=== PATIENT | male | born 1985 | race Caucasian/White ===

== ENCOUNTER 2023-04-15 14:03 | Outpatient (CLI) | payer BC, SELFPAY ==
--- OUTSIDE RECORDS SUMMARY | 2023-04-15 14:05 | XMS_ITS | Continuity of Care Document ---
Author Name Unknown Organization [facility] Address [address] [place] [address] Care Team Providers Care Bellhop Name Role Phone Rocío Sexton Primary Care Physician [facility]04/22 - 08/04/22 [facility] [address] [place] [address] Encounter Diagnosis Lumbar back pain with radiculopathy affecting left lower extremity(Discharge Diagnosis) - 08/04/22 Discharge Disposition: Home or Self Care Attending Physician: Lincoln Nickerson PA-C Admitting Physician: Lincoln Nickerson PA-C Referring Physician: Lincoln Nickerson PA-C Allergies, Adverse Reactions, Alerts No Known Medication Allergies Substance Reaction Severity Status Seasonal Moderate Active Assessment and Plan Future Appointments Immunizations Given and Recorded Vaccine Date Status Refusal Reason influenza virus vaccine, live 1 04/15/21 Recorded influenza virus vaccine, live 12/21/19 Recorded influenza virus vaccine, live 2 03/04/18 Recorded tetanus-diphth toxoids (Td) adult/adol 3 04/15/21 Recorded tetanus-diphth toxoids (Td) adult/adol 05/06/99 Re corded SARS-CoV-2 (COVID-19) mRNA-1273 vaccine 08/07/20 R ecorded SARS-CoV-2 (COVID-19) mRNA-1273 vaccine 07/10/20 R ecorded tetanus/diphth/pertuss (Tdap) adult/adol 11/15/09 Recorded hepatitis B pediatric vaccine 08/20/98 Recorded hepatitis B pediatric vaccine 03/20/98 Recorded hepatitis B pediatric vaccine 02/06/98 Recorded measles/mumps/rubella virus vaccine 06/26/98 Recor ded measles/mumps/rubella virus vaccine 12/27/87 Recor ded diphtheria/pertussis, acellular/tetanus 08/26/91 R ecorded diphtheria/pertussis, acellular/tetanus 03/28/88 R ecorded diphtheria/pertussis, acellular/tetanus 02/26/87 R ecorded diphtheria/pertussis, acellular/tetanus 01/08/87 R ecorded diphtheria/pertussis, acellular/tetanus 86 R ecorded poliovirus vaccine, live, trivalent 08/26/91 Recor ded poliovirus vaccine, live, trivalent 03/28/88 Recor ded poliovirus vaccine, live, trivalent 02/26/87 Recor ded poliovirus vaccine, live, trivalent 01/08/87 Recor ded poliovirus vaccine, live, trivalent 86 Recor ded haemophilus b conjugate (HbOC) vaccine 03/28/88 Re corded 1Result Comment: verified by DB RN and patient tolerated well. Given byy MG CHRONIC SPECIALIST 2Result Comment: tolerated well. 3Result Comment: Validated by RN YEN. Patient tolerated well. Pressure bandage applied. Medications Medrol 4 mg oral tablet 1 packets, Oral, Daily, Anti-inflammatory steroid for back pain. Take as directed on package labeling, # 21 tab, 0 Refill(s), Pharmacy: [facility] #[id number] Start Date: 08/04/22 Stop Date: 08/10/22 Status: Ordered Melatonin 3 mg oral tablet 0 Refill(s) Start Date: 04/28/22 Status: Ordered meloxicam 15 mg oral tablet 15 mg = 1 tab, Oral, Daily, PRN pain, Start after you finish Medrol Dose Pack., # 30 tab, 0 Refill(s), Pharmacy: [facility] #[id number] Start Date: 08/04/22 Stop Date: 09/03/22 Status: Ordered multivitamin adult, oral tablet 0 Refill(s) Start Date: 04/28/22 Status: Ordered Problem List Condition Confirmation Course Effective Dates Status H ealth Status Informant Acne vulgaris Confirmed Active Adult health examination Confirmed Active Cardiac arrhythmia Confirmed Active Chest pain Confirmed Active Dizziness and giddiness Confirmed Active Generalized abdominal pain Confirmed Active Hyperlipidemia Confirmed Active Impacted cerumen in left ear Confirmed Active Lumbar back pain with radiculopathy affecting left lower extremity Confirmed Active 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 Sex Male Patient Care team information Care Team Personnel Name: Rocío Sexton MD Position: Physician Member Role: Primary Care Physician Address: Address: [address] [place] [id number] [place] Care Team Related Persons Name: FRANCIS OSPINA Address: [place] [phone]
--- OUTSIDE RECORDS SUMMARY | 2023-04-15 14:05 | XMS_ITS | Continuity of Care Document ---
Author Name Unknown Organization [facility] Address [address] [place] [address] Care Team Providers Care Legal Instruments Examiner Name Role Phone Lavelle Jimenez Primary Care Physician Encounter [facility] Date(s): 07/09/22 - 07/09/[address] [address] Discharge Disposition: Home or Self Care Attending Physician: Deepak Sahu NP Admitting Physician: Deepak Sahu NP Referring Physician: eDepak Sahu COMMERCIAL FIELD INSPECTOR Allergies, Adverse Reactions, Alerts No Known Medication Allergies Substance Reaction Severity Status Seasonal Moderate Active Immunizations Given and Recorded Vaccine Date Status [...] and patient tolerated well. Given byy MG FIVE ROLL REFINER BATCH MIXER 2Result Comment: tolerated well. 3Result Comment: Validated by RN YEN. Patient tolerated well. Pressure bandage applied. 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 Panic disorder Confirmed Active Periumbilical pain Confirmed Active Screening for cardiovascular system disease Confirmed Active Thyroid function tests abnormal Confirmed Active Procedures Procedure Date Related Diagnosis Body Site Status Hernia repair 1992 Completed 1inguinal Results Laboratory List Name Date Comprehensive Metabolic Panel (CMP) 07/09 Lipid Panel 07/09/22 Most recent to oldest [Reference Range]: 1 BUN [7-18 mg/dL] 11 mg/dL (07/09/22 8:36 AM) Cholesterol Total [50-200 mg/dL] 177 mg/ dL (07/09/22 8:36 AM) LDL [0-130 mg/dL] 119 mg/dL (07/09/22 8:36 AM) Glucose Level [74-106 mg/dL] 96 mg/dL (07/09/22 8:36 AM) Potassium Level [3.5-5.1 mmol/L] 4.2 mmo l/L (07/09/22 8:36 AM) HDL [40-60 mg/dL] 33 mg/dL *LOW* (07/09/22 8:36 AM) AST [15-37 unit/L] 20 unit/L (07/09/22 8:36 AM) ALT [16-63 unit/L] 32 unit/L (07/09/22 8:36 AM) Sodium Level [136-145 mmol/L] 138 mmol/L (07/09/22 8:36 AM) Triglycerides [0-150 mg/dL] 127 mg/dL (07/09/22 8:36 AM) Calcium Level [8.5-10.1 mg/dL] 8.6 mg/dL (07/09/22 8:36 AM) Albumin Level [3.4-5.0 g/dL] 4.1 g/dL (07/09/22 8:36 AM) Protein Total [6.4-8.2 g/dL] 7.6 g/dL (07/09/22 8:36 AM) Bilirubin Total [0.2-1.0 mg/dL] 0.4 mg/d L (07/09/22 8:36 AM) Alk Phos [46-146 unit/L] 78 unit/L (07/09/22 8:36 AM) CO2 [21-32 mmol/L] 28 mmol/L (07/09/22 8:36 AM) eGFR Non-AA [>=60] 113 (07/09/22 8:36 AM) eGFR AA [>=60] 113 (07/09/22 8:36 AM) Chloride Level [98-107 mmol/L] 102 mmol/ L (07/09/22 8:36 AM) Creatinine Level [0.70-1.30 mg/dL] 0.91 mg/dL (07/09/22 8:36 AM) Social History Social History Type Response Tobacco Never tobacco user T obacco Use:. Sex Male Patient Care team information Care Team Personnel Name: Lavelle Jimenez MD Position: Physician Member Role: Primary Care Physician Address: Address: [facility] [address] [address]- Care Team Related Persons Name: FRANCIS OSPINA Address: Home [address] [place] [phone]
[2023-04-16 10:10] LABS: Lyme Ab w Rflx to Lyme Confirm Negative (Negative)
[2023-04-17 18:57] LABS: Anaplasma phagocytophilum Negative (Negative); B. miyamotoi PCR Negative (Negative); Babesia divergens/MO-1 Negative (Negative); Babesia duncani Negative (Negative); Babesia microti Negative (Negative); Ehrlichia chaffeensis Negative (Negative); Ehrlichia ewingii/canis Negative (Negative); Ehrlichia muris eauclairensis Negative (Negative)
== END 2023-04-15 14:04 | disposition home or self-care (01) ==
LOC: LBO 14:03
PROVIDERS: PCP Family Medicine; Visit Provider Otolaryngology
DX: R26.89 Other abnormalities of gait and mobility (principal)
CPT/HCPCS: 36415; 87798; 86618

== ENCOUNTER 2023-09-22 05:01 | Outpatient (CLI) | payer BC, SELFPAY ==
--- NOTE | 2023-09-27 21:53 | PDOC.EEG_ITS ---
Neurology EEG EEG: [facility] Department of Neurology LONG-TERM AMBULATORY EEG REPORT Date of Recordin09/22/23 at 15:40:54 to 09/23/23 at 06:36:15 Interpreting Physician: Dr. Keli Ojeda PCP/Referring Provider: Jack Lance NP Reason for study: Owen Taylor is a 38 year-old with spells of disorientation and other spells of R arm and leg weakness concerning for seizure. Current Medications: Home Medications ?Medication ?Instructions ?Recorded ?Confirmed ?Type melatonin 3 mg capsule 3 mg PO HS PRN 03/06/23 08/06/23 History multivitamin 1 tab PO DAILY 04/15/23 08/06/23 History magnesium oxide 250 mg PO DAILY 08/06/23 08/06/23 History omega-3 fatty acids-fish oil 300 cap PO 08/06/23 08/06/23 History mg-500 mg capsule (Fish Oil) METHODS: An 18-channel digitized electroencephalogram was recorded in the ambulatory setting with video. The 10/20 international system of electrode placement was used and bipolar and referential electrode montages were recorded. In addition to EEG the patient was monitored for EKG and video. Activation procedures of photic stimulation and hyperventilation were performed if applicable. The duration of the recording was ~15 hours. DESCRIPTION OF EEG: Waking background activity: During maximal wakefulness a 10-Hz posterior background rhythm was present which was well-modulated, symmetrical, reactive to eye opening, and of moderate voltage. Faster frequencies were present in the bilateral anterior head regions. There was a normal anterior-posterior voltage gradient. Drowsy and sleeping background activity: During drowsiness, there was attenuation of the posterior dominant background rhythm and vertex waves. Normal stage II and III sleep was present with symmetrical sleep spindles, K- complexes, and vertex waves with slowing of the background rhythm to delta/theta frequencies. REM sleep manifested by rapid lateral eye movements and faster background rhythms was recorded. Arousal was unremarkable. Interictal abnormalities: none. Ictal findings: Event #1 on 09/22/23 at 21:43 -Clinical manifestations: Mild R leg and foot weakness and discomfort lasting 15min while getting ready for bed. -EEG findings: Normal awake EEG. Event #2 on 09/23/23 at 00:18 -Clinical manifestations: R leg twitch and discomfort x 30min. -EEG findings: Normal awake EEG. Activating Procedures: Photic stimulation was performed which produced no posterior driving response. Hyperventilation was performed with moderate effort and produced no physiological slowing of the background. EKG: EKG revealed normal sinus rhythm. INTERPRETATION: This long-term EEG is normal during the awake and sleep states as well as during the activation procedures. Two events captured which were not associated with any EEG abnormality. PRIOR EEG: none CLINICAL CORRELATION: No focal regions of cerebral dysfunction or epileptiform activity was present. Two events captured - which are somewhat atypical of what was described in clinic visit - but not associated with epileptic findings. Epilepsy remains a clinical diagnosis and a normal EEG does not rule out epilepsy. Clinical correlation is advised. Keli Ojeda MD Date of service: 09/22/23
== END 2023-09-22 05:02 | disposition home or self-care (01) ==
LOC: RT 05:01
PROVIDERS: PCP Family Medicine; Visit Provider Psychiatry & Neurology Neurology
DX: R40.4 Transient alteration of awareness (principal); M62.81 Muscle weakness (generalized); R94.01 Abnormal electroencephalogram [EEG]
CPT/HCPCS: 95714; 95720